=== PATIENT | female | born 1980 | race Caucasian/White ===

== ENCOUNTER → 2018-10-14 | Outpatient (CLI) | payer BC, OTHER ==
[2016-02-14 01:40] VITALS: BP 107/69
[~2018-10-14] MED LIST: BACL20TA PO; DULO60CA6 PO; GABA600T7 PO; HYOS0.1264 PO; LINA145C PO; METF500T16 PO; OXYC1TAB15 PO; SPIR25TA5 PO; TRAM50TA PO
--- NOTE | 2018-10-14 14:06 | RAD ---
2 views the bilateral hands without comparison for chronic wrist and hand pain, no known injury. FINDINGS: 2 views of each hand is provided. There is no fracture, dislocation, or acute osseous abnormality of either hand. Joints and soft tissues are grossly unremarkable. No radiopaque foreign bodies are seen. No significant degenerative changes. IMPRESSION: 1. No fracture or acute osseous abnormality of either hand. Electronically signed by: Syed Meyer MD (10/14/2018 2:03 PM) [facility]
--- NOTE | 2018-10-14 14:07 | RAD ---
2 views of the bilateral wrists without comparison for bilateral chronic hand and wrist pain, no known injury. FINDINGS: 2 views of each wrist are provided. There is no fracture, dislocation, or acute osseous abnormality of either wrist. No degenerative changes are seen. No radiopaque foreign bodies are evident. IMPRESSION: 1. No acute osseous abnormality of either wrist. Electronically signed by: Syed Meyer MD (10/14/2018 2:04 PM) [facility]
== END | disposition home or self-care (01) ==
LOC: PMG 10:33
PROVIDERS: ATTEND Registered Nurse
DX: M79.642 Pain in left hand (principal); M79.641 Pain in right hand; M25.532 Pain in left wrist; M25.531 Pain in right wrist
CPT/HCPCS: 73100; 73120

== ENCOUNTER → 2019-06-15 | Outpatient (CLI) | payer BC ==
[2016-02-14 01:40] VITALS: BP 107/69
--- NOTE | 2019-06-15 09:36 | RAD ---
EXAM: Left foot, 3 views. HISTORY: Pain after rolling injury. COMPARISON: None. FINDINGS: 3 views of the left foot are obtained. There is no fracture, dislocation or subluxation. There is an incidental accessory navicular bone. IMPRESSION: No acute osseous finding. Electronically signed by: Judy Gloria MD (06/15/2019 9:32 AM) [facility]
== END | disposition home or self-care (01) ==
LOC: PMG 08:43
PROVIDERS: ATTEND Registered Nurse
DX: M79.672 Pain in left foot (principal)
CPT/HCPCS: 73630

== ENCOUNTER 2021-04-03 12:18 | Emergency (ER) | payer BC ==
[~2021-04-03] VITALS: Ht 165.1 cm; Wt 98.5 kg
[2021-04-03] MEDS ORDERED: ORPHENADRINE CITRATE 60 MG/2 ML VIAL. IM ONE (12:45)
[2021-04-03] MEDS ORDERED: IV NORMAL SALINE 1,000ML 1,000 ML IV ONE (12:45)
--- NOTE | 2021-04-03 13:00 | PHYS DOC ---
Past History Past Medical History: Anxiety, Constipation, Fibromyalgia, Kidney Stones, Migraines Additional Past Medical Histor: PTSD Past Surgical History: Appendectomy, , Tubal ligation, Other Additional Past Surgical Histo: colectomy Alcohol Use: Rarely Drug Use: None Adult General Chief Complaint Chief Complaint: MUSCLE SPASM/[facility] HPI Patient is a 31 female patient who presents with body cramping. Patient reports he has had this problem on and off for the last 3 weeks, however states over the last day it has gotten worse. States she has history of fibromyalgia, has had flareups like this in the past and it caused similar findings. States she is never been hospitalized for this in the past. States no nausea, no vomiting, no diarrhea. States she is well hydrated, she is eating, states she is not dehydrated. States she also has a headache. She has not take anything for her discomfort. States she continued to have this cramping pains in her extremities, worse on her left side with some weakness. Denies any visual changes. Denies history of falls or trauma. Review of Systems Review of Systems Constitutional: Denies fever or chills [] states malaise and body cramping Eyes: Denies change in visual acuity, redness, or eye pain [] HENT: Denies nasal congestion or sore throat [] Respiratory: Denies cough or shortness of breath [] Cardiovascular: No additional information not addressed in HPI [] GI: Denies abdominal pain, nausea, vomiting, bloody stools or diarrhea [] : Denies dysuria or hematuria [] Musculoskeletal: Denies back pain or joint pain [] states she just feels generalized body cramping for the last several days, which started more mild approximately 2 to 3 weeks ago Integument: Denies rash or skin lesions [] Neurologic: Denies, focal weakness or sensory changes [] states headache Endocrine: Denies polyuria or polydipsia [] All other systems were reviewed and found to be within normal limits, except as documented in this note. Allergies Allergies Allergies Coded Allergies Type Severity Reaction Last Updated Verified Sulfa (Sulfonamide Antibiotics) Allergy Intermediate hives 02/13/16 Yes codeine Allergy Intermediate Hives 02/13/16 Yes morphine Allergy Intermediate hives 02/13/16 Yes Physical Exam Physical Exam Constitutional: Well developed, well nourished, no acute distress, non-toxic appearance. [] HENT: Normocephalic, atraumatic, bilateral external ears normal, oropharynx moist, no oral exudates, nose normal. [] Eyes: PERRLA, EOMI, conjunctiva normal, no discharge. [] Neck: Normal range of motion, no tenderness, supple, no stridor. [] Cardiovascular:Heart rate regular rhythm, no murmur [] Lungs & Thorax: Bilateral breath sounds clear to auscultation [] Abdomen: Bowel sounds normal, soft, no tenderness, no masses, no pulsatile masses. [] Skin: Warm, dry, no erythema, no rash. [] Back: No tenderness, no CVA tenderness. [] Extremities: No tenderness, no cyanosis, no clubbing, ROM intact, no edema. [] Neurologic: Alert and oriented X 3, normal motor function, normal sensory function, no focal deficits noted. [] Generalized tetany with spasms noted to upper and lower extremities, left side worse than right. Psychologic: Affect normal, judgement normal, mood normal. [] Current Patient Data Vital Signs Vital Signs Date Time Temp Pulse Resp B/P (MAP) Pulse Ox O2 Delivery O2 Flow Rate FiO2 04/03/21 12:24 98.0 119 20 116/63 100 Room Air EKG EKG [] Radiology/Procedures Radiology/Procedures [] Heart Score C/O Chest Pain: No Risk Factors: Risk Factors: DM, Current or recent (<one month) smoker, HTN, HLP, family history of CAD, obesity. Risk Scores: Risk Factors: DM, Current or recent (<one month) smoker, HTN, HLP, family history of CAD, obesity. Course & Med Decision Making Course & Med Decision Making Pertinent Labs and Imaging studies reviewed. (See chart for details) reviewed labs with patient, noting anemia. Patient reports her menstrual cycles were quite heavy last month, states she had a large amount of bleeding states she has had in the past. States she has seen RAILROAD PASSENGER AGENT about her menstrual cycles in the past and had been hospitalized for her menstrual irregularities in the past. States she is feeling a little better, nausea is resolved. States she feels good enough to go home, will provide prescription for nausea medication and muscle relaxer. Patient agreed with this plan for further questions, with plan to follow-up with primary care to [facility] [facility]GER as needed Scottie Disclaimer Dragon Disclaimer This electronic medical record was generated, in whole or in part, using a voice recognition dictation system. Departure Departure: Impression: Primary Impression: Generalized body aches Additional Impressions: Muscle cramping Anemia Disposition: HOME / SELF CARE / HOMELESS Referrals: JEREMY GOMEZ MD (PCP) Patient Instructions: Muscle Cramps, [id number] Additional Instructions: As we discussed, make sure you are getting some rest. Take your home pain medications as needed. Take muscle relaxer as needed for your muscle cramping. You may use the Zofran for nausea as needed. If you continue to have very heavy menstrual cycles, which cause a lot of bleeding, make sure you are following up with your RAILROAD PASSENGER AGENT to determine if they want to evaluate it further Scripts Ondansetron (ONDANSETRON ODT) 4 Mg Tab.rapdis 1 TAB PO PRN Q6-8HRS PRN for NAUSEA, #10 TAB Prov: JANET YOUNGBLOOD APRN 04/03/21 Orphenadrine Citrate (ORPHENADRINE CITRATE) 100 Mg Tablet.er 1 TAB PO BID for cramping, #20 TAB 1 Refill Prov: JANET YOUNGBLOOD APRN 04/03/21 Problem Qualifiers Additional Impressions: Anemia Anemia type: other cause Other causes of anemia: acute posthemorrhagic Qualified Codes: D62 - Acute posthemorrhagic anemia JANET YOUNGBLOOD APRN Apr 03, 2021 13:00
[2021-04-03 13:07] LABS: BASO # 0.1 x10^3/uL (0.0-0.2); BASO % 1 % (0-3); EOS # 0.1 x10^3/uL (0.0-0.7); EOS % 1 % (0-3); HEMATOCRIT 27.1 % (36.0-47.0); HEMOGLOBIN 7.9 g/dL (12.0-15.5); LYMPH # 1.8 x10^3/uL (1.0-4.8); LYMPH % 17 % (24-48); MEAN CORPUSCULAR HEMOGLOBIN 17 pg (25-35); MEAN CORPUSCULAR HGB CONC 29 g/dL (31-37); MEAN CORPUSCULAR VOLUME 56 fL (79-100); MONO # 0.6 x10^3/uL (0.0-1.1); MONO % 6 % (0-9); NEUT # 8.2 x10^3uL (1.8-7.7); NEUT % 76 % (31-73); PLATELET COUNT 398 x10^3/uL (140-400); RED BLOOD COUNT 4.81 x10^6/uL (3.50-5.40); RED CELL DISTRIBUTION WIDTH 20.7 % (11.5-14.5); WHITE BLOOD COUNT 10.7 x10^3/uL (4.0-11.0)
[2021-04-03 13:17] LABS: CALCIUM 9.1 mg/dL (8.5-10.1); CREATININE 0.9 mg/dL (0.6-1.0); GFR 69.7
[2021-04-03 13:22] LABS: ALBUMIN 4.3 g/dL (3.4-5.0); ALBUMIN/GLOBULIN RATIO 1.1 (1.0-1.7); MAGNESIUM 2.2 mg/dL (1.8-2.4); TOTAL BILIRUBIN 0.4 mg/dL (0.2-1.0); TOTAL PROTEIN 8.2 g/dL (6.4-8.2)
[2021-04-03] MEDS ORDERED: ONDANSETRON PF 4 MG/2 ML VIAL. IVP ONE (14:45)
[2021-04-03] MEDS ORDERED: ONDA4TAB12 PO (15:20)
[2021-04-03] MEDS ORDERED: ORPH-16 PO (15:20)
[2021-04-03 15:30] VITALS: BP 123/72
[2021-04-03 17:14] LABS: BACTERIA,URINE 0 /HPF (0-FEW); BILIRUBIN,URINE NEG (NEG); CLARITY,URINE CLEAR; COLOR,URINE YELLOW; GLUCOSE,URINE NEG (NEG); NITRITE,URINE NEG (NEG); RBC,URINE 0 /HPF (0-2); SQUAMOUS EPITHELIAL CELL,UR FEW /LPF; UROBILINOGEN,URINE 0.2 mg/dL (0.2 mg/dL); WBC,URINE 0 /HPF (0-4)
[2021-04-03 19:57] LABS: ANISOCYTOSIS MOD; MICROCYTOSIS MARKED; PLT ESTIMATE ADEQUATE (ADEQUATE)
[2021-04-03 20:00] LABS: HYPOCHROMIA MOD
== END 2021-04-03 16:00 | disposition home or self-care (01) ==
LOC: ER 12:18
DX: D64.9 Anemia, unspecified (principal); R25.2 Cramp and spasm; F41.9 Anxiety disorder, unspecified; M79.7 Fibromyalgia; G43.909 Migraine, unspecified, not intractable, without status migrainosus; Z87.442 Personal history of urinary calculi; Z88.2 Allergy status to sulfonamides; Z88.5 Allergy status to narcotic agent
CPT/HCPCS: 36415; 80053; 81001; 82550; 83735; 85025; 96361; 96372; 96374; 99283; J2360; J2405; J7030

== ENCOUNTER → 2021-04-17 | Outpatient (CLI) | payer BC ==
[2021-04-03 15:30] VITALS: BP 123/72
[~2021-04-17] MED LIST changes: +ONDA4TAB12 PO; +ORPH-16 PO
--- NOTE | 2021-04-17 13:40 | RAD ---
EXAM: Right upper extremity sonogram. HISTORY: Subcutaneous cyst. TECHNIQUE: Sonographic imaging of the right upper extremity at the site of palpable concern was perfo rmed. COMPARISON: None. FINDINGS: There is a circumscribed hypoechoic lesion with internal echoes within the subcutaneous sof t tissues of the posterior right upper arm at the site of concern, measuring 6 x 5 x 3 mm. This demon strates no internal blood flow. There is no indication with the overlying skin surface. IMPRESSION: 6 mm benign-appearing suspected complicated cyst within the posterior upper arm at the si te of palpable concern. Despite the absence of a tract to the overlying skin surface, the imaging cb earance favors a sebaceous cyst. Continued clinical follow-up of palpable abnormality is recommended. Repeat imaging can be performed if there is continuing concern. Electronically signed by: Judy Gloria MD (04/17/2021 1:38 PM) [id number]
== END ==
LOC: US 12:40
PROVIDERS: ATTEND Physician Assistant Medical
DX: L72.9 Follicular cyst of the skin and subcutaneous tissue, unspecified (principal)
CPT/HCPCS: 76881

== ENCOUNTER 2021-07-05 19:18 | Emergency (ER) | payer BC ==
[~2021-07-05] VITALS: Ht 165.1 cm; Wt 100.0 kg
[~2021-07-05 19:18] MED LIST changes: -DULO60CA6 PO; +DULO60CA7 PO
[2021-07-05] MEDS ORDERED: IBUPROFEN 600 MG TABLET. PO ONE (20:30)
--- NOTE | 2021-07-05 22:01 | PHYS DOC ---
Past History Past Medical History: Anxiety, Constipation, Fibromyalgia, Kidney Stones, Migraines Additional Past Medical Histor: Insomnia, Fatty Liver, (NILS VELÁZQUEZ APRN) Past Surgical History: Appendectomy, Cholecystectomy, Additional Past Surgical Histo: L knee, R Shoulder (NILS VELÁZQUEZ APRN) Alcohol Use: None Drug Use: None (NILS VELÁZQUEZ APRN) General Adult EDM: Chief Complaint: SHORTNESS OF BREATH HPI: HPI: Patient is a 40-year-old female who presents with Covid. Patient states that she has had cough and diarrhea since Thursday. Patient states she is been taking cough syrup and medicine for diarrhea at home with little relief. Patient reports abdominal cramping. Denies shortness of breath. Denies fever. Patient states her also tested positive for Covid on Thursday and is being admitted to the hospital. Patient has fibromyalgia. (NILS VELÁZQUEZ APRN) Review of Systems: Review of Systems: ROS At least 10 ROS systems have been reviewed and are negative except as documented in the HPI. General: Negative except as outlined in HPI above. Skin: Negative except as outlined in HPI above. HEENT: Negative except as outlined in HPI above. Neck: Negative except as outlined in HPI above. Respiratory: Negative except as outlined in HPI above.. Cardiovascular: Negative except as outlined in HPI above. Abdomen: Negative except as outlined in HPI above. : Negative except as outlined in HPI above. Back/MSK: Negative except as outlined in HPI above. Neuro: Negative except as outlined in HPI above. Psych: Negative except as outlined in HPI above. (NILS VELÁZQUEZ APRN) Current Medications: Current Meds: Current Medications Medications (Trade) Dose Ordered Sig/Placido Start Time Stop Time Status Last Admin Dose Admin Ibuprofen (Motrin) 600 mg 1X ONCE 07/05/21 20:30 07/05/21 20:34 DC 07/05/21 20:41 600 MG (NILS VELÁZQUEZ APRN) Allergies: Allergies: Allergies Coded Allergies Type Severity Reaction Last Updated Verified Sulfa (Sulfonamide Antibiotics) Allergy Intermediate hives 02/13/16 Yes codeine Allergy Intermediate Hives 02/13/16 Yes morphine Allergy Intermediate hives 02/13/16 Yes diphenhydramine Adverse Reaction Unknown 04/03/21 Yes (NILS VELÁZQUEZ APRN) Physical Exam: PE: Constitutional: Well developed, well nourished, no acute distress, non-toxic appearance. [] HENT: Normocephalic, atraumatic, bilateral external ears normal, oropharynx moist, no oral exudates, nose normal. [] Eyes: PERRLA, EOMI, conjunctiva normal, no discharge. [] Neck: Normal range of motion, no tenderness, supple, no stridor. [] Cardiovascular:Heart rate regular rhythm, no murmur [] Lungs & Thorax: Bilateral breath sounds clear to auscultation [] Abdomen: Bowel sounds normal, soft, no tenderness, no masses, no pulsatile masses. [] Skin: Warm, dry, no erythema, no rash. [] Back: No tenderness, no CVA tenderness. [] Extremities: No tenderness, no cyanosis, no clubbing, ROM intact, no edema. [] Neurologic: Alert and oriented X 3, normal motor function, normal sensory function, no focal deficits noted. [] Psychologic: Affect normal, judgement normal, mood normal. [] (NILS VELÁZQUEZ APRN) Current Patient Data: Vital Signs: Vital Signs Date Time Temp Pulse Resp B/P (MAP) Pulse Ox O2 Delivery O2 Flow Rate FiO2 07/05/21 20:30 104 99 Room Air 07/05/21 19:25 98.5 20 131/91 (104) (NILS VELÁZQUEZ APRN) EKG: EKG: [] (NILS VELÁZQUEZ APRN) Radiology/Procedures: Radiology/Procedures: [] (NILS VELÁZQUEZ APRN) Heart Score: C/O Chest Pain: No Risk Factors: Risk Factors: DM, Current or recent (<one month) smoker, HTN, HLP, family history of CAD, obesity. Risk Scores: Score 0 - 3: 2.5% MACE over next 6 weeks - Discharge Home Score 4 - 6: 20.3% MACE over next 6 weeks - Admit for Clinical Observation Score 7 - 10: 72.7% MACE over next 6 weeks - Early Invasive Strategies (NILS VELÁZQUEZ APRN) Course & Med Decision Making: Course & Med Decision Making Pertinent Labs and Imaging studies reviewed. (See chart for details) [] 40-year-old female presents with cough, diarrhea since Thursday. Patient was tested positive for Covid on Thursday. Pain treated in the emergency room. Advised patient to take Mucinex DM drink plenty of fluids, quarantine. Discussed return precautions. Patient is hemodynamically stable. (NILS VELÁZQUEZ APRN) Course & Med Decision Making Did not see or evaluate patient. Did not discuss patient with DIRECTOR PEDIATRIC. Agree with DIRECTOR PEDIATRIC's work-up and disposition per note. (ALEKSANDR BECKER MD) Dragon Disclaimer: Dragon Disclaimer: This electronic medical record was generated, in whole or in part, using a voice recognition dictation system. (NILS VELÁZQUEZ APRN) Departure Departure: Impression: Primary Impression: Cough Additional Impression: COVID-19 virus infection Disposition: HOME / SELF CARE / HOMELESS Condition: STABLE Referrals: RICKY HOOD (PCP) Patient Instructions: Cough, Adult, [id number], Diarrhea, [id number] Additional Instructions: You are seen in the emergency room for cough, diarrhea and Covid. Please make sure that you are quarantining at home to avoid infecting others. Take over- the-counter Mucinex to help with cough and congestion. Drink plenty of fluids. Motrin for discomfort or fever. Follow-up with your PCP on Thursday. Return to the emergency room with worsening symptoms or concerns EMERGENCY DEPARTMENT GENERAL DISCHARGE INSTRUCTIONS Thank you for coming to [facility] (ED) today and trusting us with you care. We trust that you had a positivie experience in our Emergency Department. If you wish to speak to the department management, you may call the director at [phone]. YOUR FOLLOW UP INSTRUCTIONS ARE FOLLOWS: 1. Do you have a private Doctor? If you do not have a private doctor, please ask for a resource list of physicians or clinics that may be able to assist you with follow up care. 2. The Emergency Physician has interpreted your x-rays. The X-Ray specialist will also review them. If there is a change in the findings, you will be notified in 48 hours when at all possible. 3. A lab test or culture has been done, your results will be reviewed and you will be notified if you need a change in treatment. ADDITIONAL INSTRUCTIONS AND INFORMATION: 1. Your care today has been supervised by a physician who is specially trained in emergency care. Many problems require more than one evaluation for a complete diagnosis and treatment. We recommend that you schedule your follow up appointment as recommended to ensure complete treatment of you illness or injury. If you are unable to obtain follow up care and continue to have a problem, or if your condition worsens, we recommend that you return to the ED. 2. We are not able to safely determine your condition over the phone nor are we able to give sound medical advice over the phone. For these safety reasons, if you call for medical advice we will ask you to come to the ED for further evaluation. 3. If you have any questions regarding these discharge instructions please call the ED at [phone]. SAFETY INFORMATION: In the interest of safety, wellness, and injury prevention; we encourage you to wear your sealbelt, if you smoke; quite smoking, and we encourage family to use a protective helmet for bicycling and other sporting events that present an increased risk for head injury. IF YOUR SYMPTOMS WORSEN OR NEW SYMPTOMS DEVELOP, OR YOU HAVE CONCERNS ABOUT YOUR CONDITION; OR IF YOUR CONDITION WORSENS WHILE YOU ARE WAITING FOR YOUR FOLLOW UP APPOINTME NT; EITHER CONTACT YOUR PRIMARY CARE DOCTOR, THE PHYSICIAN WHOSE NAME AND NUMBER YOU WERE GIVEN, OR RETURN TO THE ED IMMEDIATELY. NILS VELÁZQUEZ APRN Jul 05, 2021 22:01 ALEKSANDR BECKER MD Jul 05, 2021 22:29
[2021-07-05 22:15] VITALS: BP 111/76
--- NOTE | 2021-07-05 23:09 | RAD ---
Exam: Chest one view INDICATION: Cough TECHNIQUE: Frontal view of the Comparisons: None FINDINGS: The cardiomediastinal silhouette and pulmonary vessels are within normal limits. The lung and pleural spaces are clear. IMPRESSION: No acute cardiopulmonary process. Electronically signed by: Shahid Gtz MD (07/05/2021 11:07 PM) [facility]
== END 2021-07-05 23:20 | disposition home or self-care (01) ==
LOC: ER 19:18
DX: U07.1 COVID-19 (principal); R19.7 Diarrhea, unspecified; F41.9 Anxiety disorder, unspecified; M79.7 Fibromyalgia; G43.909 Migraine, unspecified, not intractable, without status migrainosus; Z87.442 Personal history of urinary calculi; Z90.49 Acquired absence of other specified parts of digestive tract; Z90.89 Acquired absence of other organs; Z98.890 Other specified postprocedural states; Z88.2 Allergy status to sulfonamides; Z88.5 Allergy status to narcotic agent; Z88.8 Allergy status to other drugs, medicaments and biological substances
CPT/HCPCS: 71045; 99283